=== PATIENT | female | born 1955 | race Caucasian/White ===

== ENCOUNTER 2016-12-15 07:55 | Emergency (ER) | payer BC ==
[~2016-12-15 07:55] MED LIST: AMBIEN CR12.5 MG PO; CLA; DSS PO; GLUCCHONDR PO; SUPER B; VIT B 12; VIT D 3; VIVELLE SY0.075 MG/2 TOP; ZYRTEC ALLGY10 MG PO; [UNRECOGNIZED DRUG - MIXTURE]; [UNRECOGNIZED DRUG - OTHER]
== END 2016-12-15 08:30 | disposition home or self-care (01) ==
LOC: ER 07:55
PROC: 0HQ1XZZ Repair Face Skin, External Approach (ICD-10-PCS; principal; 2016-12-15)
DX: S01.112A Laceration without foreign body of left eyelid and periocular area, initial encounter (principal); J34.89 Other specified disorders of nose and nasal sinuses; Z88.1 Allergy status to other antibiotic agents; Z88.5 Allergy status to narcotic agent; Z79.899 Other long term (current) drug therapy; W19.XXXA Unspecified fall, initial encounter
CPT/HCPCS: 70160; 90714; 99283

== ENCOUNTER 2016-12-22 14:51 | Emergency (ER) | payer BC | END 2016-12-22 14:52 | disposition home or self-care (01) | LOC: ER 14:51 | DX: S01.81XD Laceration without foreign body of other part of head, subsequent encounter (principal); Z88.1 Allergy status to other antibiotic agents; Z88.5 Allergy status to narcotic agent; Z79.899 Other long term (current) drug therapy; X58.XXXD Exposure to other specified factors, subsequent encounter | CPT/HCPCS: 70450; 99284 ==